=== PATIENT | female | born 1990 | race American Indian/Alaskan Native ===

== ENCOUNTER 2022-06-22 13:11 | Observation (INO) | payer BC ==
[2022-06-22] MEDS ORDERED: DOCUSATE SODIUM 100 MG CAP PO PRN (13:59)
[2022-06-22] MEDS ORDERED: ACETAMINOPHEN 325 MG TAB PO PRN (13:59)
[2022-06-22] MEDS ORDERED: LACTATED RINGERS 1,000 ML IV SCH (14:00)
[2022-06-22 16:50] LABS: Basophils % (Auto) 0.3 % (0.0-1.8); Eosinophils % (Auto) 0.2 % (0.0-4.3); Hematocrit 34.6 % (30.3-42.9); Lymphocytes # (Auto) 1.3 K/mm3 (1.2-5.4); Lymphocytes % (Auto) 15.3 % (13.4-35.0); Mean Corpuscular HGB Conc 35 % (30-34); Mean Corpuscular Volume 84 fl (79-97); Monocytes # (Auto) 0.6 K/mm3 (0.0-0.8); Monocytes % (Auto) 7.4 % (0.0-7.3); Platelet Count 210 K/mm3 (140-440); Red Blood Count 4.13 M/mm3 (3.65-5.03); Red Cell Distribution Width 14.6 % (13.2-15.2)
--- NOTE | 2022-06-22 18:46 | History and Physical Report ---
History of Present Illness Date of examination: 06/22/22 Date of admission: 06/22/22 13:12 History of present illness: Patient seen at [facility] this morning by Dr. Norwood who states that patient had finding on ultrasound consistent with probable incompetent cervix and and recommended that the patient be admitted for placement of a cervical cerclage Past History Past Medical History: no pertinent history Past Surgical History: no surgical history COMMERCIAL AGENT History: abnormal PAP smear - Obstetrical History : 1 Para: 0 Hx # Term Pregnancies: 0 Number of Pregnancies: 0 Spontaneous Abortions: 0 Induced : 0 Number of Living Children: 0 Medications and Allergies Allergies Allergy/AdvReac Type Severity Reaction Status Date / Time No Known Allergies Allergy Unverified 06/22/22 15:37 Active Meds: Active Medications Acetaminophen (Acetaminophen 325 Mg Tab) 650 mg PO Q4H PRN PRN Reason: Pain MILD(1-3)/Fever >100.5/EVERETT Docusate Sodium (Docusate Sodium 100 Mg Cap) 100 mg PO Q12H PRN PRN Reason: Constipation Lactated Ringer's (Lactated Ringers) 1,000 mls @ 125 mls/hr IV DIRECT JULEE Last Admin: 06/22/22 16:29 Dose: 125 mls/hr Multivitamins/Iron/Calcium ( [id number] Fumarate-Folic Acid Vit Tab) 1 each PO QDAY JULEE Review of Systems All systems: negative Gastrointestinal: abdominal pain - Vital Signs Vital signs: Vital Signs Pulse BP 96 H 108/62 06/22/22 16:19 06/22/22 16:19 Temp Pulse Resp BP Pulse Ox 98.8 F 96 H 16 108/62 98 06/22/22 16:26 06/22/22 16:26 06/22/22 16:26 06/22/22 16:26 06/22/22 16:26 - Physical Exam Breasts: Positive: deferred Cardiovascular: Regular rate Lungs: Positive: Normal air movement Abdomen: Positive: normal appearance, soft Vagina: Positive: normal moisture Uterus: Positive: enlarged Anus/Rectum: Positive: normal perianal skin Extremities: Positive: normal - Obstetrical FHR: auscultation normal Cervical Dilatation: 0 Cervical Effacement Percentage: 40 station: -3 Uterine Contraction Pattern: Absent Results Result Diagrams: 06/22/22 16:00 Abnormal lab results 06/22/22 Range/Units 16:00 MCHC 35 H (30-34) % [place] % (Auto) 7.4 H (0.0-7.3) % Seg Neutrophils % 76.8 H (40.0-70.0) % All other labs normal. Assessment and Plan - Patient Problems (1) Cervical incompetence during in second trimester Current Visit: Yes Status: Acute Plan to address problem: Diagnosis discussed with the patient. Discussed the diagnosis of incompetent cervix and that is usually diagnosed after delivering of premature at a nonviable state during the patient's first . Discussed the finding on ultrasound and the recommendation by the perinatologist. The cerclage procedure was explained in detail. I discussed the risks of adjacent organ damage to bladder or rectum and also the risks of premature rupture of membranes with his risk of infection and early delivery of a nonviable infant. I also discussed the risks of bleeding This was witnessed with nurse April present. All questions were answered. And the patient desires to proceed with placement of the cervical cerclage. The plan is to try to perform this procedure this evening after shift engineer shift is in place
[2022-06-22] MEDS ORDERED: fentaNYL 100 MCG/2 ML INJ ONE (21:12)
[2022-06-22] MEDS ORDERED: LACTATED RINGERS 1,000 ML ONE (21:15)
[2022-06-22] MEDS ORDERED: PROMETHAZINE 25 MG TAB PO PRN (22:03)
[2022-06-22] MEDS ORDERED: ONDANSETRON 4 MG/2 ML INJ IV PRN (22:03)
[2022-06-22] MEDS ORDERED: PROMETHAZINE 25 MG RECT SUPP PR PRN (22:03)
[2022-06-22] MEDS ORDERED: NALOXONE 0.4 MG/1 ML INJ IV PRN (22:03)
[2022-06-22] MEDS ORDERED: MORPHINE 4 MG/1 ML INJ IV PRN (22:03)
[2022-06-22] MEDS ORDERED: HYDROmorphone 1 MG/1 ML INJ IV PRN ×2 (22:03)
--- NOTE | 2022-06-22 22:04 | Anesthesia Consultation ---
Anesthesia Consult and Med Hx Date of service: 06/22/22 - Airway Anesthetic Teeth Evaluation: Good ROM Head & Neck: Adequate Mental/Hyoid Distance: Adequate Mallampati Class: Class II Intubation Access Assessment: Probably Good - Pulmonary Exam CTA: Yes - Cardiac Exam Cardiac Exam: RRR - Pre-Operative Health Status ASA Pre-Surgery Classification: ASA2 Proposed Anesthetic Plan: Spinal - Pulmonary Hx Smoking: No Hx Asthma: No Hx Respiratory Symptoms: No SOB: No COPD: No Home Oxygen Therapy: No Hx Pneumonia: No Hx Sleep Apnea: No - Cardiovascular System Hx Hypertension: No Hx Coronary Artery Disease: No Hx Heart Attack/AMI: No Hx Angina: No Hx Percutaneous Transluminal Coronary Angioplasty (PTCA): No Hx Cardia Arrhythmia: No Hx Pacemaker: No Hx Internal Defibrillator: No Hx Valvular Heart Disease: No Hx Heart Murmur: No Hx Peripheral Vascular Disease: No - Central Nervous System Hx Neuromuscular Disorder: No Hx Seizures: No CVA: No Hx Back Pain: No Hx Psychiatric Problems: No - Gastrointestinal Hx Ulcer: No Hx Gastroesophageal Reflux Disease: No - Endocrine Hx Renal Disease: No Hx End Stage Renal Disease: No Hx Cirrhosis: No Hx Liver Disease: No Hx Insulin Dependent Diabetes: No Hx Non-Insulin Dependent Diabetes: No Hx Thyroid Disease: No Hx Hypothyroidism: No Hx Hyperthyroidism: No - Hematic Hx Anemia: No Hx Sickle Cell Disease: No - Other Systems Hx Alcohol Use: No Hx Substance Use: No Hx Cancer: No Hx Obesity: No
--- NOTE | 2022-06-22 22:04 | Anesthesia Day of Surgery ---
Anesthesia Day of Surgery - Day of Surgery Patient Examined: Yes Patient H&P Reviewed: Yes Patient is NPO: Yes Beta Blockers: No Cardiac Clearance: No Pulmonary Clearance: No Troy's Test: N/A
--- NOTE | 2022-06-22 22:06 | Progress Note ---
Spinal Anesthesia Block - Spinal Anesthesia Block Start Time: 20:48 Stop Time: 20:53 Performed by:: FELICITY CHAVEZ Procedure: The patient was placed in a sitting position on the OR table and monitors applied. A timeout was performed immediately prior to the start of the procedure. The patient was Prepped and draped in a sterile fashion and the skin was localized with 3 mL 1% lidocaine at L[4]-L[5] interspace. An introducer was placed into the back between L4-L5 and a 25g spinal needle was advanced into the intrathecal space until clear, free flowing CSF was observed. .8cc of 0.75% hyperbaric bupivacaine was injected into the intrathecal space and the spinal needle was removed. The patient tolerated the procedure well and there were no immediate complications noted.
--- NOTE | 2022-06-22 22:19 | Operative Report ---
Operative Report Operative Report: Date of procedure: June 22, 2022 Pre-operative diagnosis: Incompetent cervix Post-operative diagnosis: Same Procedure name(s): Harpal cervical cerclage Surgeon: Braulio Westbrook MD Tamping Machine Operator: YOMI Anesthesia: Spinal EBL: Minimal Complications: None Findings: Patient with a cervix approximately 2 cm Specimen(s): None Procedure: Patient was brought to the operating room where spinal anesthesia was induced without difficulty. [facility] Patient was prepped and draped in usual sterile manner. Bladder was emptied with a red rubber catheter. Weighted speculum was placed in her vagina. The administrative assistant coordinator retracted the bladder anteriorly. Her cervical exam as noted above. Starting at 1:00 the [place] stitch of the cerclage was placed in pursestring fashion. With the knot tied at 1:00 under moderate pressure with several throws in the knot. There was no evidence of rupture of amniotic sac. No evidence of adjacent organ injury was seen. The cervix was was inspected and found to be hemostatic. All instruments were removed. Patient was informed of the number of sutures 1 and the location of the knot at 1:00. The patient tolerated procedure well and was accompanied to recovery room in good condition. Instrument count correct x2.
--- NOTE | 2022-06-23 08:30 | Discharge Summary ---
Providers - Providers Date of Admission: 06/22/22 13:12 Date of discharge: 06/23/22 (desires d/c home) Attending physician: VIDAL SIMON Primary care physician: VIDAL SIMON Hospitalization Reason for admission: Cerclage placement Condition: Good Procedures: uncomplicated cerclage placement Disposition: 01 HOME / SELF CARE / HOMELESS Final Discharge Diagnosis (Prints w/discharge instructions): s/p cerclage placement Time spent for discharge: 20 - Discharge Diagnoses (1) 20 weeks gestation of Status: Acute (2) Cervical incompetence during in second trimester Status: Acute Core Measure Documentation - Palliative Care Palliative Care/ Comfort Measures: Not Applicable - Core Measures Any of the following diagnoses?: none Exam - Constitutional Vitals: Temp Pulse Resp BP Pulse Ox 98.0 F 92 H 14 102/59 99 06/23/22 03:24 06/23/22 07:09 06/23/22 03:24 06/23/22 03:24 06/23/22 07:09 General appearance: Present: no acute distress, well-nourished - EENT Eyes: Present: PERRL ENT: hearing intact, clear oral mucosa - Neck Neck: Present: supple, normal ROM - Respiratory Respiratory effort: normal Respiratory: bilateral: CTA - Cardiovascular Rhythm: regular Heart Sounds: Absent: rub, click - Extremities Extremities: No edema Peripheral Pulses: within normal limits - Abdominal General gastrointestinal: Present: soft, non-tender, non-distended, normal bowel sounds Female genitourinary: Present: normal - Integumentary Integumentary: Present: clear, warm, dry - Musculoskeletal Musculoskeletal: gait normal, strength equal bilaterally - Psychiatric Psychiatric: appropriate mood/affect, intact judgment & insight - Neurologic Neurologic: CNII-XII intact, moves all extremities - Additional findings Additional findings: light vaginal spotting, no cramping or leaking Plan Activity: no restrictions Diet: regular Special Instructions: other (pelvic rest - no sex) Follow up with: VIDAL SIMON MD [Primary Care Provider] - 7 Days
[2022-06-23 09:31] VITALS: BP 93/50
[2022-06-23] MEDS ORDERED: PRENATAL VIT27-FE FUMARATE-FOLIC ACID VIT TAB PO SCH (10:00)
--- NOTE | 2022-06-23 10:13 | Post Anesthesia Evaluation ---
- Post Anesthesia Evaluation Patient Participated: No Airway Patent: Yes Stable Respiratory Function: Yes Nausea/Vomiting: No Temp > 96.8F: Yes Pain Manageable: Yes Adequeate Hydration: Yes Anesthesia Complications: No Block Receding Appropriately: Yes Patient on Ventilator: No
== END 2022-06-23 10:00 | disposition home or self-care (01) ==
LOC: TRG 13:11 → LD 13:12 → TRG 16:08
PROVIDERS: ADMIT Obstetrics & Gynecology; ATTEND Obstetrics & Gynecology
DX: O34.32 Maternal care for cervical incompetence, second trimester (principal); Z3A.20 20 weeks gestation of pregnancy
CPT/HCPCS: 36415; 59320; 85025; 86850; 86900; 86901; G0378; J3010; J7120